=== PATIENT | female | born 1970 | race Caucasian/White ===

== ENCOUNTER → 2022-03-23 | Outpatient (REF) | payer BC | LOC: M LAB REF 17:32 | PROVIDERS: ATTEND Internal Medicine Endocrinology, Diabetes & Metabolism | DX: E04.2 Nontoxic multinodular goiter (principal) ==

== ENCOUNTER → 2022-06-22 | Outpatient (REF) | payer BC | LOC: M LAB REF 17:10 | PROVIDERS: ATTEND Internal Medicine Endocrinology, Diabetes & Metabolism | DX: E04.2 Nontoxic multinodular goiter (principal) ==

== ENCOUNTER 2024-02-16 11:41 | Day surgery (SDC) | payer BC ==
[~2024-02-16] VITALS: Ht 175.3 cm; Wt 80.3 kg
[~2024-02-16 11:41] MED LIST: B-122500 PO; GNP250TA9 PO; LEVO25TA5 PO; LIDOCAINE 3.5 % 1ML OPHTH TOPICAL GEL OU ONE; MELA5TAB11 PO; METO1TAB32 PO; MIDAZOLAM INJ 2MG/2ML VIAL As Ordered ONE; NOXI1TAB PO; OMEP40CA5 PO; OS-CTAB PO; REST0.05 OU; SALA1TAB PO; SERT50TA29 PO; SUMA25TA3 PO; fentaNYL 100 MCG/2 ML INJECTION As Ordered ONE
[2024-02-16] MEDS: POVIDONE-IODINE 5% OPHTH PREP SOL 30ML As Ordered ONE (13:45)
[2024-02-16] MEDS: LIDOCAINE 2% W/EPINEPHRINE 20ML VIAL **PRES FREE As Ordered ONE (13:51)
[2024-02-16] MEDS: TOBRADEX OPHTH OINT 3.5 GM As Ordered ONE (14:23)
[2024-02-16] MEDS: ONDANSETRON 4MG TAB PO ONE (15:18)
[2024-02-16 15:23] VITALS: BP 119/60; TEMP 98.7; O2SAT 98
== END 2024-02-16 15:25 | disposition home or self-care (01) ==
LOC: M SDC 11:41
PROVIDERS: ATTEND Ophthalmology
DX: H02.834 Dermatochalasis of left upper eyelid (principal); H02.831 Dermatochalasis of right upper eyelid; G43.909 Migraine, unspecified, not intractable, without status migrainosus; Z79.899 Other long term (current) drug therapy; Z88.0 Allergy status to penicillin; Z98.1 Arthrodesis status; Z90.710 Acquired absence of both cervix and uterus; Z87.891 Personal history of nicotine dependence
CPT/HCPCS: 15823; 88300; J2250; J3010